=== PATIENT | male | born 1995 | race Caucasian/White ===

== ENCOUNTER 2023-03-04 08:35 | Outpatient (CLI) | payer OTHER ==
[2023-03-04 12:12] LABS: CREATINE KINASE MB 1.3 ng/mL (0.6-6.3)
[2023-03-04 12:48] LABS: CKMB % 1.4 % (0.0-4.0)
== END 2023-03-04 08:36 | disposition home or self-care (01) ==
LOC: LAB.N 08:35
PROVIDERS: ATTEND Physician Assistant Medical
DX: M54.50 Low back pain, unspecified (principal)
CPT/HCPCS: 36415; 82550; 82553

== ENCOUNTER 2023-11-27 08:00 | Outpatient (CLI) | payer OTHER ==
[2023-11-27 12:04] LABS: BASOPHILS # (AUTO) 0.1 10^3/uL (0.0-0.1); BASOPHILS % (AUTO) 0.6 %; EOSINOPHILS % (AUTO) 0.5 %; HCT - HEMATOCRIT 45.7 % (42.0-52.0); HGB - HEMOGLOBIN 15.6 g/dL (14.0-18.0); LYMPHOCYTES # (AUTO) 1.8 10^3/uL (1.5-3.5); LYMPHOCYTES % (AUTO) 21.8 %; MEAN CORPUSCULAR HEMOGLOBIN 28.6 pg (27.0-31.0); MEAN CORPUSCULAR HGB CONC 34.1 g/dL (32.0-36.0); MEAN CORPUSCULAR VOLUME 83.7 fL (80.0-94.0); MEAN PLATELET VOLUME 9.9 fL (7.4-11.4); MONOCYTES # (AUTO) 0.5 10^3/uL (0.0-1.0); MONOCYTES % (AUTO) 5.9 %; NEUTROPHILS % (AUTO) 70.8 %; PLT - PLATELET COUNT 317 10^3/uL (130-450); RED BLOOD COUNT 5.46 10^6/uL (4.70-6.10); WHITE BLOOD COUNT 8.4 x10^3/uL (4.8-10.8)
[2023-11-27 12:12] LABS: ALBUMIN 4.4 g/dL (3.2-5.5); ALBUMIN/GLOBULIN RATIO 1.6 (1.0-2.2); BILIRUBIN,TOTAL 0.5 mg/dL (0.2-1.0); CALCIUM 9.4 mg/dL (8.5-10.3); CREATININE 1.1 mg/dL (0.6-1.3); POTASSIUM 3.8 mmol/L (3.5-4.5); TOTAL PROTEIN 7.1 g/dL (6.4-8.9)
[2023-11-27 12:27] LABS: THYROID STIMULATING HORMONE 1.23 uIU/mL (0.34-5.60)
== END 2023-11-27 23:59 | disposition home or self-care (01) ==
LOC: LAB.N 08:00
PROVIDERS: ATTEND Physician Assistant Medical
DX: R55 Syncope and collapse (principal)
CPT/HCPCS: 36415; 80053; 84443; 85025